=== PATIENT | male | born 1965 | race Caucasian/White ===

== ENCOUNTER 2018-01-11 16:59 | Emergency (ER) | payer OTHER ==
[2018-01-11] MEDS ORDERED: Lidocaine 1% 30 ML SDV INJECT ONE (17:09)
--- NOTE | 2018-01-11 19:18 | EDM.PDOC ---
ED HPI GENERAL MEDICAL PROBLEM - General Chief Complaint: Laceration Time Seen by Provider: 01/11/18 17:01 Source of Information: Reports: Patient History Limitations: Reports: No Limitations - History of Present Illness INITIAL COMMENTS - FREE TEXT/NARRATIVE: Pt. states that he sustained injury to the tips of his 2nd, 3rd, and 4th digit of L hand while using a table saw. Denies injury elsewhere other than to his fingers . Tetanus is UTD. ROM is normal. Location: Reports: Upper Extremity, Left Quality: Reports: Sharp - Related Data Allergies Allergy/AdvReac Type Severity Reaction Status Date / Time No Known Allergies Allergy Verified 01/11/18 18:52 Home Meds: Home Meds . [No Known Home Meds] 01/11/18 [History] Past Medical History - Past Health History Medical/Surgical History: Denies Medical/Surgical History Social & Family History - Tobacco Use Smoking Status *Q: Unknown Ever Smoked ED ROS GENERAL - Review of Systems Review Of Systems: See Below Constitutional: Reports: No Symptoms HEENT: Reports: No Symptoms Respiratory: Reports: No Symptoms Cardiovascular: Reports: No Symptoms Musculoskeletal: Reports: Hand Pain (pain/laceration to 2nd, 3rd, and 4th digit of L hand) ED EXAM, SKIN/RASH Exam: See Below Extremities: Normal Range of Motion, Other (superficial lacerations noted to 2nd and 4th digit that do not require closure. 2.5 cm deeper laceration noted to 2nd fingertip of L hand. ROM is normal. No obvious bony injury or other deformity noted. CMS intact.) ED SKIN PROCEDURES - Laceration/Wound Repair Left Middle Finger Lac/Wound length In cm: 2.5 Appearance: Subcutaneous Distal NVT: Neuro & Vascular Intact Anesthetic Type: Local Local Anesthetic Volume: 5cc Skin Prep: Chlorhexidine (Hibiciens), Saline Exploration/Debridement/Repair: Wound Explored, Minimal Debridement Closed with: Sutures Suture Size: 4-0 # of Sutures: 4 Progress/Comments: largest laceration to L middle finger was sutured. The superficial lacerations to the 2nd, 3rd, and 4th digit were allowed to heal via secondary intention. Tube gauze and telfa applied. Course - Vital Signs Last Recorded V/S: Last Vital Signs Temp 36.6 C 01/11/18 17:02 Pulse 69 01/11/18 17:02 Resp 18 07/05/18 17:02 BP 158/88 H 01/11/18 17:02 Pulse Ox 98 01/11/18 17:02 - Orders/Labs/Meds Meds: Medications Discontinued Medications Generic Name Dose Route Start Last Admin Trade Name Coty PRN Reason Stop Dose Admin Lidocaine HCl 30 ml 01/11/18 17:09 01/11/18 17:58 Xylocaine-Mpf 1% INJECT 01/11/18 17:10 30 ml ONETIME ONE Administration Departure - Departure Time of Disposition: 18:12 Disposition: Home, Self-Care 01 Clinical Impression: Laceration - Discharge Information Instructions: Laceration Care, Adult Referrals: Kendall Sorensen MD [Primary Care Provider] - Forms: ED Department Discharge Additional Instructions: Keep dressing on for 48 hours. Sutures out in 12 days. Return if redness, swelling, or discharge from the area. After the dressing is off, keep open to the air as much as possible. If you anticipate getting the area dirty, keep covered.
== END 2018-01-11 18:12 | disposition home or self-care (01) ==
LOC: VM.ED 16:59
DX: S61.213A Laceration without foreign body of left middle finger without damage to nail, initial encounter (principal); S61.211A Laceration without foreign body of left index finger without damage to nail, initial encounter; S61.215A Laceration without foreign body of left ring finger without damage to nail, initial encounter; W27.0XXA Contact with workbench tool, initial encounter
CPT/HCPCS: 12001; 99282